=== PATIENT | female | born 1995 | race Caucasian/White ===

== ENCOUNTER 2022-08-23 07:06 | Day surgery (SDC) | payer OTHER ==
[~2022-08-23] VITALS: Ht 160 cm; Wt 55.5 kg
[2022-08-23] VITALS (8 sets, daily range): BP systolic 96–139; BP diastolic 54–88
--- NOTE | 2022-08-23 07:21 | NUR ---
Dr. Christie telephoned with patient intake information including usage, dose, last dose/time taken and initial vital signs. Patient history and allergies reviewed with MD. Orders received for 10 mg PO Valium and 0.1 mg PO Clonidine now. Will reassess per protocol in 1.5 hours and update MD with assessment and vitals.
--- NOTE | 2022-08-23 07:42 | NUR ---
Patient arrived to the [facility] suite, identification and demographics confirmed. Patient to room 10, AAO, ambulatory, vitals obtained, ID/allergy/fall bands placed, changed into hospital gown, AMADOU hose, and non-slip socks. Procedure and timeline explained for treatment and discharge. All questions answered and the patient presents no concerns at this time.
[2022-08-23 07:44] LABS: HEMOGLOBIN 11.5 g/dl (12.0-16.0); IMMATURE GRANULOCYTES 0.2 % (0.0-5.0); MEAN CELL VOLUME 95.8 fL CALC (80.0-100.0); MEAN CORPUSCULAR HGB 32.4 pG CALC (26.0-32.0); MEAN CORPUSCULAR HGB CONC 33.8 g/dL CAL (32.0-36.0); NEUT# 2.69 thou/uL (2.00-7.15); RED BLOOD COUNT 3.55 mill/uL (4.20-5.60); RED CELL DISTRI WIDTH 11.8 % (11.5-15.5)
[2022-08-23] MEDS ORDERED: LEXAPRO10 MG PO (07:49)
[2022-08-23] MEDS ORDERED: [UNRECOGNIZED DRUG - OTHER] (07:50)
[2022-08-23 07:59] LABS: ALKALINE PHOSPHATASE 46 u/l (38-126); ANION GAP 13 (6-22 (CALC)); BILIRUBIN, TOTAL 0.2 mg/dL (0.0-1.4); BUN 13 mg/dL (7-17); BUN/CREATININE RATIO 21 (12-20 (CALC)); CARBON DIOXIDE 27 mmol/l (22-30); CHLORIDE 102 mmol/l (95-108); CREATININE 0.6 mg/dL (0.5-1.0); GFR FOR AFR.AMER. > 60 ML/MIN (>=60 (CALC)); GFR OTHER RACES > 60 ML/MIN (>=60 (CALC)); SGOT/AST 32 u/l (14-36); SODIUM 137 mmol/l (137-146); TOTAL PROTEIN 6.7 g/dL (6.3-8.2)
--- NOTE | 2022-08-23 08:45 | NUR ---
Patient resting comfortably in bed. Easily aroused, maintains focus, and drifts back to sleep. No signs of active withdrawal or distress noted at this time.
--- NOTE | 2022-08-23 09:35 | NUR ---
Dr. Christie telephoned with reassessment and new vital signs. Reviewed initial Valium and Clonidine dose with MD. Orders received for NO PO Valium and NO mg PO Clonidine, initiate fluid bolus per protocol/orders. Will reassess per protocol in 1.5 hours and update MD with assessment and vitals.
--- NOTE | 2022-08-23 09:45 | NUR ---
Patient resting comfortably in bed. Easily aroused, maintains focus, and drifts back to sleep. No signs of active withdrawal or distress noted at this time. Continuous SPO2, rhythm, and respiratory monitoring initiated. IVF @ 250 mL/HR, room air, VSS.
--- NOTE | 2022-08-23 10:45 | NUR ---
Patient resting comfortably in bed. Easily aroused, maintains focus, and drifts back to sleep. No signs of active withdrawal or distress noted at this time. VSS. Continuous monitoring remains in place.
--- NOTE | 2022-08-23 11:44 | NUR ---
Patient resting comfortably in bed. Easily aroused, maintains focus, and drifts back to sleep. No signs of active withdrawal or distress noted at this time. Continuous SPO2, rhythm, and respiratory monitoring. IVF @ 250 mL/HR, room air, VSS.
--- NOTE | 2022-08-23 12:51 | NUR ---
Breathing treatment and Protonix administered at this time per Dr. Christie.
--- NOTE | 2022-08-23 13:11 | NUR ---
Induction Note Patient to [facility] procedure room. Time out performed at 1311. Patient placed on monitors, Barry hugger, bilateral wrist restraints applied for ET tube protection. Versed 5mg given IV push at 1312 Tourniquet applied to 1313 arm Lidocaine 100mg given at 1313 IV push followed by Rocoronium 10mg at 1313 IV push and held for 45 seconds. Propofol bolus of 100 mg given at 1315 IV push. Succinylcholine 80mg given IV push at 1316. Smooth intubation with 7.5 ETT @ 24L. Positive CO2. Positive Auscultation for air exchange. Patient placed on ventilator for spontaneous ventilation. Placed on Propofol IV drip at 1317. OG inserted. Positive air on auscultation. Positive gastric content. Stomach washed at this time.
--- NOTE | 2022-08-23 13:30 | NUR ---
OG close note Stomach washed at this time. Naltrexone 50 mg with Clonidine 0.2 mg via OG tube. OG will be clamped for 45 minutes.
--- NOTE | 2022-08-23 14:15 | NUR ---
OG open note OG open at this time. Gastric content draining into drainage bag. OG to drain for 45 minutes. Propofol will be titrated down based on patient.
--- NOTE | 2022-08-23 15:08 | NUR ---
OG close note Stomach washed at this time. Naltrexone 50 mg with Clonidine 0.2 mg via OG tube. OG will be clamped for 45 minutes.
[2022-08-23] MEDS ORDERED: NALTREXONE50 MG PO (15:58)
[2022-08-23] MEDS ORDERED: CLONIDINE0.1 MG PO (15:58)
[2022-08-23] MEDS ORDERED: KLONOPIN2 MG PO (15:59)
--- NOTE | 2022-08-23 16:40 | NUR ---
OG close note Stomach washed at this time. Naltrexone 25 mg with Clonidine 0.2 mg via OG tube. OG will be clamped for 45 minutes.
--- NOTE | 2022-08-23 18:10 | NUR ---
No OG close at this time. Patient continues to react to treatment. Vitals, total Naltrexone & Clonidine, treatment duration and patient assessment discussed with Dr. Christie. No orders for medication administration at this time.
--- NOTE | 2022-08-23 19:10 | NUR ---
Extubation note Closing medications given Benadryl 50mg IV push, Decadron 10mg IV push,Magnesium 4 grams IV, Zofran 8mg IV push, Octreotide 100mcg SC. Stomach washed out prior to extubation. Suctioned gastric content. OG removed. Patient extubated. Propofol Discontinued. Wrist restraints removed. Barry hugger Removed. See [facility] Moderate sedate recovery record for further notes and assessment.
--- NOTE | 2022-08-23 19:35 | NUR ---
Patient to room 281 in no acute distress. Transfer of care to Med-digital controls technical officerPETRONA Johnson at bedside. 2L NC in place per orders, IVF to continue at 100ml/hr. VS prior to transfer: 107/78, 91 HR, 97% 34 RR. Patient resting comfortably, no adventitious breath sounds appreciated. Bed alarm set. See chart/EMAR for procedural details and assessments. Handoff of care at the time of this note.
--- NOTE | 2022-08-23 19:45 | NUR ---
PATIENT RESTING IN BED. NO SIGNS OF DISTRESS NOTED. BED REMAINS IN LOW POSITION. BED ALARM ACTIVE.
--- NOTE | 2022-08-23 23:56 | NUR ---
PATIENT RESTING IN BED. ALERT AND PLEASANT. ABLE TO MAKE NEEDS KNOWN. DOESNT TRY TO GET OUT OF BED ON HER OWN. DRINKING WITHOUT DIFFICULTY. VOIDS IN ROOM BATHROOM. AMBULATES WITH SUPERVISION. BED REMAINS IN LOW POSITION. CALL LIGHT IN REACH. BED ALARM ACTIVE.
[2022-08-24 03:37] VITALS: BP 113/75
[2022-08-24 04:05] VITALS: BP 113/75
--- NOTE | 2022-08-24 04:53 | NUR ---
PATIENT RESTING IN BED ON HER RIGHT SIDE. ALERT AND ABLE TO MAKE NEEDS KNOWN. BED REMAINS IN LOW POSITION. CALL LIGHT IN REACH. BED ALARM REMAINS ACTIVE.
[2022-08-24 05:21] LABS: HEMATOCRIT 33.1 % (37.0-47.0); HEMOGLOBIN 11.6 g/dl (12.0-16.0); IMMATURE GRANULOCYTES 0.2 % (0.0-5.0); MEAN CELL VOLUME 92.7 fL CALC (80.0-100.0); MEAN CORPUSCULAR HGB 32.5 pG CALC (26.0-32.0); NEUT# 9.16 thou/uL (2.00-7.15); RED BLOOD COUNT 3.57 mill/uL (4.20-5.60); RED CELL DISTRI WIDTH 11.7 % (11.5-15.5)
[2022-08-24 05:32] LABS: ALBUMIN 3.9 g/dL (3.2-5.0); ALKALINE PHOSPHATASE 51 u/l (38-126); BUN 6 mg/dL (7-17); BUN/CREATININE RATIO 13 (12-20 (CALC)); CHLORIDE 107 mmol/l (95-108); CREATININE 0.4 mg/dL (0.5-1.0); GFR FOR AFR.AMER. > 60 ML/MIN (>=60 (CALC)); GFR OTHER RACES > 60 ML/MIN (>=60 (CALC)); POTASSIUM 3.9 mmol/l (3.5-5.1); SGOT/AST 32 u/l (14-36); SODIUM 139 mmol/l (137-146); TOTAL PROTEIN 6.5 g/dL (6.3-8.2)
[2022-08-24 05:45] LABS: ANION GAP 15 (6-22 (CALC)); BILIRUBIN, TOTAL 0.3 mg/dL (0.0-1.4); CARBON DIOXIDE 21 mmol/l (22-30)
--- NOTE | 2022-08-24 07:00 | NUR ---
Report received from granulator tender RN. pt sleeping in bed. breathing is even and unlabored. no distress noted. fall/saftey precaution in place. call light within reach.
[2022-08-24 09:00] VITALS: BP 122/74
[2022-08-24 09:16] VITALS: BP 122/74
--- NOTE | 2022-08-24 10:05 | NUR ---
ENCOURAGED PT TO EAT. FINISHED YOGURT AND BANANA. STATES NO FEELING OF NAUSEA OR VOMITING. FALL/SAFTEY PRECAUTION IN PLACE, CALL LIGHT WITHIN REACH
--- NOTE | 2022-08-24 12:44 | NUR ---
[facility] STAFF AT BEDSIDE
--- NOTE | 2022-08-24 14:00 | NUR ---
Discharge instructions given. Patient verbalizes understanding of same. Discharged in stable condition via Wheelchair to Home with staff. All belongings sent with pt.
== END 2022-08-24 14:00 | disposition home or self-care (01) | DRG 897 ==
LOC: ANR 07:06 → ANR-I 07:07 → MS2 20:35 → ANR 08-24 14:00
PROVIDERS: ATTEND Anesthesiology
DX: F11.20 Opioid dependence, uncomplicated (principal); E03.9 Hypothyroidism, unspecified; F41.8 Other specified anxiety disorders
CPT/HCPCS: J2354